=== PATIENT | female | born 1970 | race Caucasian/White ===

== ENCOUNTER 2017-05-27 05:39 | Day surgery (SDC) | payer BC ==
[~2017-05-27] VITALS: Ht 170.2 cm; Wt 118.4 kg
--- NOTE | ~2017-05-27 | EGD ---
EGD REPORT [facility] [address] [place] [id number] NAME: BERNICE STOLL : [birth year] STATUS : [facility]#: [id number] AGE: 47 ADM/REG DATE : 05/27/17 MR#: [id number] REPORT SERV DATE: 05/27/17 DICTATED BY: CSOTT NICKERSON DATE: 05/27/17 REPORT STATUS : Draft TRANSCRIBED BY: [employer] DATE: 05/27/17 [facility] Patient Name: Bernice Stoll Date of : 1970 Attending MD: SCOTT NICKERSON, Procedure Date No Time: 05/27/2017 Procedure: Upper GI endoscopy Indications: Endoscopy to assess diarrhea in patient suspected of having celiac disease, Nausea Referring MD: AYALA ISAAC Medicines: Monitored Anesthesia Care Complications: No immediate complications. Estimated blood loss: None. Procedure: Pre-Anesthesia Assessment: - ASA Grade Assessment: III - A patient with severe systemic disease. After obtaining informed consent, the endoscope was passed under direct vision. Throughout the procedure, the patient's blood pressure, pulse, and oxygen saturations were monitored continuously. The GIF H190 [id number] was introduced through the mouth, and advanced to the second part of duodenum. The upper GI endoscopy was accomplished without difficulty. The patient tolerated the procedure well. Findings: LA Grade B (one or more mucosal breaks greater than 5 mm, not extending between the tops of two mucosal folds) esophagitis with no bleeding was found in the lower third of the esophagus. The cardia and gastric fundus were normal on retroflexion. A single 3 mm sessile polyp with no bleeding and no stigmata of recent bleeding was found in the gastric fundus. The polyp was removed with a cold biopsy forceps. Resection and retrieval were complete. Verification of patient identification for the specimen was done. Estimated blood loss was minimal. Patchy mild inflammation characterized by erosions was found in the entire examined stomach. Biopsies were taken with a cold forceps for histology. Verification of patient identification for the specimen was done. Estimated blood loss was minimal. The examined duodenum was normal. Multiple biopsies were obtained in the 2nd part of the duodenum with cold forceps for histology. Impression: - LA Grade B reflux esophagitis. - A single gastric polyp. Resected and retrieved. - Gastritis. Biopsied. - Normal examined duodenum. EGD REPORT [address] [address] NAME: BERNICE STOLL : [birth year] STATUS : REG [facility] PAT#: [id number] AGE: 47 ADM/REG DATE : 05/27/17 MR#: [id number] REPORT SERV DATE: 05/27/17 DICTATED BY: SCOTT NICKERSON DATE: 05/27/17 REPORT STATUS : Draft TRANSCRIBED BY: [employer] DATE: 05/27/17 - Multiple biopsies were obtained in the 2nd part of the duodenum. Recommendation: - Patient has a contact number available for emergencies. The signs and symptoms of potential delayed complications were discussed with the patient. Return to normal activities tomorrow. Written discharge instructions were provided to the patient. - Return to previous diet. - Continue present medications. - Await pathology results. Procedure Code(s): --- Professional --- 03181, Esophagogastroduodenoscopy, flexible, transoral; with biopsy, single or multiple Diagnosis Code(s): --- Professional --- K21.0, Gastro-esophageal reflux disease with esophagitis K31.7, Polyp of stomach and duodenum K29.70, Gastritis, unspecified, without bleeding R19.7, Diarrhea, unspecified R11.0, Nausea CPT copyright 2013 [employer]. All rights reserved. The codes documented in this report are preliminary and upon dressing room porter review may be revised to meet current compliance requirements. SCOTT NICKERSON, 05/27/2017 7:49 AM Number of Addenda: 0 Note Initiated On: 05/27/2017 7:04 AM Scope Withdrawal Time 0 hours 0 minutes 0 seconds [id number] [place] [address]
--- NOTE | ~2017-05-27 | EGD ---
EGD REPORT [facility] [address] [place]. [address] NAME: BERNICE STOLL : 74 STATUS : REG [facility]#: [id number] AGE: 47 ADM/REG DATE : 05/27/17 MR#: [id number] REPORT SERV DATE: 05/27/17 DICTATED BY: SCOTT NICKERSON DATE: 05/27/17 REPORT STATUS : Draft TRANSCRIBED BY: [employer] DATE: 05/27/17 End[facility] Center Patient Name: Bernice Stoll Date of : 1970 Attending MD: SCOTT NICKERSON, Procedure Date No Time: 05/27/2017 Procedure: Colonoscopy Indications: Chronic diarrhea Referring MD: AYALA ISAAC Medicines: Monitored Anesthesia Care Complications: No immediate complications. Estimated blood loss: None. Procedure: Pre-Anesthesia Assessment: - ASA Grade Assessment: III - A patient with severe systemic disease. After I obtained informed consent, the scope was passed under direct vision. Throughout the procedure, the patient's blood pressure, pulse, and oxygen saturations were monitored continuously. The PCF [id number] was introduced through the anus and advanced to the terminal ileum. The colonoscopy was performed without difficulty. The patient tolerated the procedure well. The quality of the bowel preparation was adequate. Findings: The perianal and digital rectal examinations were normal. The terminal ileum appeared normal. An area of mildly congested mucosa was found in the ascending colon and in the cecum. Biopsies were taken with a cold forceps for histology. Verification of patient identification for the specimen was done. Estimated blood loss was minimal. An area of mildly congested mucosa was found in the sigmoid colon, in the descending colon and in the transverse colon. Biopsies were taken with a cold forceps for histology. Verification of patient identification for the specimen was done. Estimated blood loss was minimal. A sessile polyp was found in the transverse colon. The polyp was 6 mm in size. The polyp was removed with a cold snare. Resection and retrieval were complete. Verification of patient identification for the specimen was done. Estimated blood loss was minimal. A sessile polyp was found in the transverse colon. The polyp was 3 mm in size. The polyp was removed with a cold biopsy forceps. Resection and retrieval were complete. Verification of patient identification for the specimen was done. Estimated blood loss was minimal. A sessile polyp was found in the sigmoid colon. The polyp was 2 mm in size. The polyp was removed with a cold biopsy forceps. Resection and EGD REPORT [address] [address] NAME: BERNICE STOLL : [birth year] STATUS : REG [facility] PAT#: [id number] AGE: 47 ADM/REG DATE : 05/27/17 MR#: [id number] REPORT SERV DATE: 05/27/17 DICTATED BY: SCOTT NICKERSON DATE: 05/27/17 REPORT STATUS : Draft TRANSCRIBED BY: [employer] DATE: 05/27/17 retrieval were complete. Verification of patient identification for the specimen was done. Estimated blood loss was minimal. A sessile polyp was found in the sigmoid colon. The polyp was 4 mm in size. The polyp was removed with a cold snare. Resection and retrieval were complete. Verification of patient identification for the specimen was done. Estimated blood loss was minimal. An area of mildly congested mucosa was found in the rectum. Biopsies were taken with a cold forceps for histology. Verification of patient identification for the specimen was done. Estimated blood loss was minimal. The exam was otherwise without abnormality on direct and retroflexion views. Impression: - The examined portion of the ileum was normal. - Congested mucosa in the ascending colon and in the cecum. Biopsied. - Congested mucosa in the sigmoid colon, in the descending colon and in the transverse colon. Biopsied. - One 6 mm polyp in the transverse colon. Resected and retrieved. - One 3 mm polyp in the transverse colon. Resected and retrieved. - One 2 mm polyp in the sigmoid colon. Resected and retrieved. - One 4 mm polyp in the sigmoid colon. Resected and retrieved. - Congested mucosa in the rectum. Biopsied. - The examination was otherwise normal on direct and retroflexion views. Recommendation: - Patient has a contact number available for emergencies. The signs and symptoms of potential delayed complications were discussed with the patient. Return to normal activities tomorrow. Written discharge instructions were provided to the patient. - Return to previous diet. - Continue present medications. - Await pathology results. - Repeat colonoscopy for surveillance based on pathology results. Procedure Code(s): --- Professional --- 32696, Colonoscopy, flexible, proximal to splenic flexure; with removal of tumor(s), polyp(s), or other lesion(s) by snare technique 30517, 59, Colonoscopy, flexible, proximal to splenic flexure; with biopsy, single or multiple EGD REPORT [address] [place]. [address] NAME: BERNICE STOLL : [birth year] STATUS : REG [facility] PAT#: [id number] AGE: 47 ADM/REG DATE : 05/27/17 MR#: [id number] REPORT SERV DATE: 05/27/17 DICTATED BY: SCOTT NICKERSON DATE: 05/27/17 REPORT STATUS : Draft TRANSCRIBED BY: [employer] DATE: 05/27/17 Diagnosis Code(s): --- Professional --- K63.89, Other specified diseases of intestine K62.89, Other specified diseases of anus and rectum D12.5, Benign neoplasm of sigmoid colon D12.3, Benign neoplasm of transverse colon K52.9, Noninfective gastroenteritis and colitis, unspecified CPT copyright 2013 [employer]. All rights reserved. The codes documented in this report are preliminary and upon funeral arrangement director review may be revised to meet current compliance requirements. SCOTT NICKERSON, 05/27/2017 7:53 AM Number of Addenda: 0 Note Initiated On: 05/27/2017 6:58 AM Scope Withdrawal Time 0 hours 19 minutes 43 seconds [id number] [place] [id number]
[~2017-05-27 05:39] MED LIST: ABILIFY30 MG PO; BUSPAR15 M1 PO; CELEXA40 MG PO; COZ50 PO; EFFEXOR XR150 MG PO; ESTRADIOL2 MG OR; GEODON60 MG PO; LOFIB160 PO; MAG OXIDE250 MG PO; MELATONIN10 M2 PO; METHOC750B PO; MSCONT15 PO; NEUR800 PO; OXYCOD PO; POTASSIUM GLUCO99 MG PO; SEROQUEL1C PO; TOPAMAX25 PO; TOVIAZ8 MG PO; VITAMIN D31000 UNIT PO; X5 PO; ZOCOR20 PO; ZOFRAN4 PO
== END 2017-05-27 23:59 | disposition home or self-care (01) ==
LOC: DMU 05:39
PROVIDERS: Internal Medicine Gastroenterology
PROC: 0DBL8ZX Excision of Transverse Colon, Via Natural or Artificial Opening Endoscopic, Diagnostic (ICD-10-PCS; 2017-05-27)
PROC: 0DBM8ZX Excision of Descending Colon, Via Natural or Artificial Opening Endoscopic, Diagnostic (ICD-10-PCS; 2017-05-27)
PROC: 0DBN8ZX Excision of Sigmoid Colon, Via Natural or Artificial Opening Endoscopic, Diagnostic (ICD-10-PCS; 2017-05-27)
PROC: 0DBL8ZX Excision of Transverse Colon, Via Natural or Artificial Opening Endoscopic, Diagnostic (ICD-10-PCS; 2017-05-27)
PROC: 0DBN8ZX Excision of Sigmoid Colon, Via Natural or Artificial Opening Endoscopic, Diagnostic (ICD-10-PCS; 2017-05-27)
PROC: 0DB68ZX Excision of Stomach, Via Natural or Artificial Opening Endoscopic, Diagnostic (ICD-10-PCS; principal; 2017-05-27 07:00)
PROC: 0DB98ZX Excision of Duodenum, Via Natural or Artificial Opening Endoscopic, Diagnostic (ICD-10-PCS; 2017-05-27 07:00)
PROC: 0DBK8ZX Excision of Ascending Colon, Via Natural or Artificial Opening Endoscopic, Diagnostic (ICD-10-PCS; 2017-05-27 07:00)
DX: D12.3 Benign neoplasm of transverse colon (principal); K63.5 Polyp of colon; K31.7 Polyp of stomach and duodenum; K21.0 Gastro-esophageal reflux disease with esophagitis; I10 Essential (primary) hypertension; E78.00 Pure hypercholesterolemia, unspecified; E11.9 Type 2 diabetes mellitus without complications; G47.33 Obstructive sleep apnea (adult) (pediatric); J30.2 Other seasonal allergic rhinitis; K58.9 Irritable bowel syndrome, unspecified; F32.9 Major depressive disorder, single episode, unspecified; F17.210 Nicotine dependence, cigarettes, uncomplicated; Z90.89 Acquired absence of other organs; Z90.49 Acquired absence of other specified parts of digestive tract; Z90.710 Acquired absence of both cervix and uterus; Z98.890 Other specified postprocedural states; Z88.8 Allergy status to other drugs, medicaments and biological substances; Z79.890 Hormone replacement therapy; Z79.891 Long term (current) use of opiate analgesic; Z79.899 Other long term (current) drug therapy
CPT/HCPCS: 82962; 88305; 94640; J2405